=== PATIENT | female | born 1985 ===

== ENCOUNTER 2025-03-18 14:35 | Outpatient (CLI) | payer OTHER | END 2025-03-18 14:37 | disposition home or self-care (01) | LOC: PRENATAL 14:35 | PROVIDERS: ATTEND Obstetrics & Gynecology Maternal & Fetal Medicine | DX: O36.80X0 Pregnancy with inconclusive fetal viability, not applicable or unspecified (principal); Z36.82 Encounter for antenatal screening for nuchal translucency; Z14.8 Genetic carrier of other disease; O34.219 Maternal care for unspecified type scar from previous cesarean delivery; O09.521 Supervision of elderly multigravida, first trimester; Z3A.14 14 weeks gestation of pregnancy ==